=== PATIENT | female | born 1990 | race Two or more races ===

== ENCOUNTER 2019-04-14 19:24 | Emergency (ER) | payer OTHER ==
[~2019-04-14] VITALS: Ht 157.5 cm; Wt 109.0 kg
[2019-04-14 20:41] LABS: BASO # 0.1 x10^3/uL (0.0-0.2); BASO % 1 % (0-3); EOS # 0.1 x10^3/uL (0.0-0.7); EOS % 1 % (0-3); HEMATOCRIT 39.6 % (36.0-47.0); HEMOGLOBIN 13.5 g/dL (12.0-15.5); LYMPH # 2.3 x10^3/uL (1.0-4.8); LYMPH % 24 % (24-48); MEAN CORPUSCULAR HEMOGLOBIN 29 pg (25-35); MEAN CORPUSCULAR HGB CONC 34 g/dL (31-37); MEAN CORPUSCULAR VOLUME 85 fL (79-100); MONO # 0.6 x10^3/uL (0.0-1.1); MONO % 6 % (0-9); NEUT # 6.6 x10^3/uL (1.8-7.7); NEUT % 69 % (31-73); PLATELET COUNT 318 x10^3/uL (140-400); RED BLOOD COUNT 4.66 x10^6/uL (3.50-5.40); RED CELL DISTRIBUTION WIDTH 14.2 % (11.5-14.5); WHITE BLOOD COUNT 9.6 x10^3/uL (4.0-11.0)
[2019-04-14 20:42] LABS: BILIRUBIN,URINE NEGATIVE (NEG); CLARITY,URINE CLEAR; COLOR,URINE YELLOW; NITRITE,URINE NEGATIVE (NEG); PROTEIN,URINE NEGATIVE (NEG-TRACE); UROBILINOGEN,URINE 0.2 mg/dL (0.2 mg/dL)
[2019-04-14 20:46] LABS: SQUAMOUS EPITHELIAL CELL,UR MOD /LPF
[2019-04-14 20:47] LABS: BACTERIA,URINE FEW /HPF (0-FEW)
--- NOTE | 2019-04-14 20:51 | PHYS DOC ---
Adult General Chief Complaint Chief Complaint: ABDOMINAL PAIN HPI HPI 29-year-old female presents to the emergency department with complaints of right upper quadrant pain, epigastric pain over the last 3 months off and on. She states the pain is worse with eating, described as a sharp sensation, states it comes and goes lasting a couple hours at times. She denies any nausea, vomiting, fever, diarrhea at this time. She does state at intervals she does have some nausea associated with the pain. As described. The pain does radiate to the back at times as well. Patient states she's getting a significant amount of weight recently, she is well states her hair has been falling out. She has not seen her primary care physician for her complaints. She denies any headache, chest pain, shortness of breath, visual changes. Review of Systems Review of Systems Constitutional: Denies fever or chills [] Respiratory: Denies cough or shortness of breath [] Cardiovascular: No additional information not addressed in HPI [] GI: + abdominal pain, no nausea, vomiting, bloody stools or diarrhea [] : Denies dysuria or hematuria [] Musculoskeletal: pain radiates to her back Integument: Denies rash or skin lesions [] Neurologic: Denies headache, focal weakness or sensory changes [] All other systems were reviewed and found to be within normal limits, except as documented in this note. Current Medications Current Medications Current Medications Medications (Trade) Dose Ordered Sig/[facility] Start Time Stop Time Status Last Admin Dose Admin Sodium Chloride 1,000 ml @ 1,000 mls/hr Q1H 04/14/19 21:15 04/14/19 22:14 04/14/19 21:15 1,000 MLS/HR Allergies Allergies Allergies Coded Allergies Type Severity Reaction Last Updated Verified No Known Drug Allergies 04/14/19 No Physical Exam Physical Exam Constitutional: Well developed, well nourished, no acute distress, non-toxic appearance. [] HENT: Normocephalic, atraumatic, bilateral external ears normal, oropharynx moist, no oral exudates, nose normal. [] Eyes: PERRLA, EOMI, conjunctiva normal, no discharge. [] Cardiovascular:Heart rate regular rhythm, no murmur [] Lungs & Thorax: Bilateral breath sounds clear to auscultation [] Abdomen: Bowel sounds normal, soft, TTP RUQ - + coleman's sign, no masses, no pulsatile masses. [] Skin: Warm, dry, no erythema, no rash. [] Back: No tenderness, no CVA tenderness. [] Extremities: No tenderness, no edema. [] Neurologic: Alert and oriented X 3, no focal deficits noted. [] Psychologic: Affect normal, judgement normal, mood normal. [] Current Patient Data Vital Signs Vital Signs Date Time Temp Pulse Resp B/P (MAP) Pulse Ox O2 Delivery O2 Flow Rate FiO2 04/14/19 20:25 98.3 100 18 172/71 (104) 100 98.3 Lab Values Laboratory Tests Test 04/14/19 20:34 White Blood Count 9.6 x10^3/uL (4.0-11.0) Red Blood Count 4.66 x10^6/uL (3.50-5.40) Hemoglobin 13.5 g/dL (12.0-15.5) Hematocrit 39.6 % (36.0-47.0) Mean Corpuscular Volume 85 fL (79-100) Mean Corpuscular Hemoglobin 29 pg (25-35) Mean Corpuscular Hemoglobin Concent 34 g/dL (31-37) Red Cell Distribution Width 14.2 % (11.5-14.5) Platelet Count 318 x10^3/uL (140-400) Neutrophils (%) (Auto) 69 % (31-73) Lymphocytes (%) (Auto) 24 % (24-48) Monocytes (%) (Auto) 6 % (0-9) Eosinophils (%) (Auto) 1 % (0-3) Basophils (%) (Auto) 1 % (0-3) Neutrophils # (Auto) 6.6 x10^3/uL (1.8-7.7) Lymphocytes # (Auto) 2.3 x10^3/uL (1.0-4.8) Monocytes # (Auto) 0.6 x10^3/uL (0.0-1.1) Eosinophils # (Auto) 0.1 x10^3/uL (0.0-0.7) Basophils # (Auto) 0.1 x10^3/uL (0.0-0.2) Urine Collection Type Unknown Urine Color Yellow Urine Clarity Clear Urine pH 6.0 Urine Specific Taylor 1.010 Urine Protein Negative mg/dL (NEG-TRACE) Urine Glucose (UA) Negative mg/dL (NEG) Urine Ketones (Stick) Negative mg/dL (NEG) Urine Blood Moderate (NEG) Urine Nitrite Negative (NEG) Urine Bilirubin Negative (NEG) Urine Urobilinogen Dipstick 0.2 mg/dL (0.2 mg/dL) Urine Leukocyte Esterase Trace (NEG) Urine RBC 6-10 /HPF (0-2) Urine WBC 5-10 /HPF (0-4) Urine Squamous Epithelial Cells Mod /LPF Urine Bacteria Few /HPF (0-FEW) Sodium Level 138 mmol/L (136-145) Potassium Level 3.4 mmol/L (3.5-5.1) L Chloride Level 103 mmol/L (98-107) Carbon Dioxide Level 25 mmol/L (21-32) Anion Gap 10 (6-14) Blood Urea Nitrogen 8 mg/dL (7-20) Creatinine 0.5 mg/dL (0.6-1.0) L Estimated GFR (Cockcroft-Gault) 146.9 BUN/Creatinine Ratio 16 (6-20) Glucose Level 95 mg/dL (70-99) Calcium Level 9.3 mg/dL (8.5-10.1) Total Bilirubin 0.3 mg/dL (0.2-1.0) Aspartate Amino Transferase (AST) 19 U/L (15-37) Alanine Aminotransferase (ALT) 37 U/L (14-59) Alkaline Phosphatase 81 U/L (46-116) Total Protein 8.6 g/dL (6.4-8.2) H Albumin 3.7 g/dL (3.4-5.0) Albumin/Globulin Ratio 0.8 (1.0-1.7) L Lipase 75 U/L (73-393) Laboratory Tests 04/14/19 20:34 Laboratory Tests 04/14/19 20:34 EKG EKG [] Radiology/Procedures Radiology/Procedures [facility] [address] [place] [address] IMAGING REPORT Signed PATIENT: ARYA SAMAYOA LACCOUNT: [id number] : 1990 LOCATION: ER AGE: 29 SEX: F EXAM STATUS: REG ER ORD. PHYSICIAN: PEDRITO KOEHLER MD REASON: Right upper quadrant pain, + coleman's sign PROCEDURE: ABDOMEN LTD ABDOMEN LTD INDICATION: Abdominal pain COMPARISON: None. TECHNIQUE: Limited transverse and longitudinal grayscale images of the right upper quadrant with color and pulsed doppler utilized as appropriate. FINDINGS: The liver demonstrates normal echogenicity without focal lesions. The liver measures 15.9 cm. The portal vein is patent with normal antegrade flow. The gallbladder is normal in appearance without stones. No wall thickening or pericholecystic fluid. Negative sonographic Coleman's sign. No intrahepatic or extrahepatic biliary dilatation. The common bile duct measures 0.3 cm. Pancreas is not well visualized. The right kidney has normal echogenicity and measures 11.7 cm. No hydronephrosis, shadowing stones or suspicious masses seen. No ascites or fluid collections. The aorta and IVC are poorly visualized. IMPRESSION: Normal gallbladder. No evidence of acute cholecystitis. Electronically signed by: Itzel Edmonds MD (04/14/2019 9:44 PM) [id number] DICTATED and SIGNED BY: ITZEL EDMONDS MD DATE: 04/14/192143 [] Course & Med Decision Making Course & Med Decision Making Pertinent Labs and Imaging studies reviewed. (See chart for details) []29-year-old female presents to the emergency department with complaints of right upper quadrant pain, epigastric pain over the last 3 months off and on. She states the pain is worse with eating, described as a sharp sensation, states it comes and goes lasting a couple hours at times. She denies any nausea, vomiting, fever, diarrhea at this time. She does state at intervals she does have some nausea associated with the pain. As described. The pain does radiate to the back at times as well. Patient states she's getting a significant amount of weight recently, she is well states her hair has been falling out. She has not seen her primary care physician for her complaints. She denies any headache, chest pain, shortness of breath, visual changes. Labs reviewed US negative Patient presents with biliary colic type pain Recommend follow up as outaptient with surgery referral - she likely needs PIPIDA scan to follow the function of the gall bladder Capulin and zofran provided upon discharge Pain controlled at this time Discussed return precautions Jerry Disclaimer Dragon Disclaimer This electronic medical record was generated, in whole or in part, using a voice recognition dictation system. Departure Departure Impression: Primary Impression: Biliary colic Referrals: NO PCP (PCP) Patient Instructions: Biliary Colic Additional Instructions: Recommend follow up with PCP/Referral for surgical eval Likely will need PIPIDA as outpatient to follow the function of the gallbladder Pain medication/Nausea medication provided upon discharge Return to ER with fever, returned pain, nausea/vomiting intractable Scripts Hydrocodone/Apap 5-325 (NORCO 5-325 TABLET) 1 Each Tablet 1 TAB PO PRN Q6HRS PRN for PAIN, #10 TAB 0 Refills Prov: PEDRITO KOEHLER MD 04/14/19 Ondansetron Hcl (ZOFRAN) 4 Mg Tablet 1 TAB PO PRN Q6-8HRS for nausea, #12 TAB Prov: PEDRITO KOEHLER MD 04/14/19 PEDRITO KOEHLER MD Apr 14, 2019 20:51
[2019-04-14 20:53] LABS: CALCIUM 9.3 mg/dL (8.5-10.1); CREATININE 0.5 mg/dL (0.6-1.0); GFR 146.9; POTASSIUM 3.4 mmol/L (3.5-5.1)
[2019-04-14 20:57] LABS: ALBUMIN 3.7 g/dL (3.4-5.0); ALBUMIN/GLOBULIN RATIO 0.8 (1.0-1.7); TOTAL BILIRUBIN 0.3 mg/dL (0.2-1.0); TOTAL PROTEIN 8.6 g/dL (6.4-8.2)
[2019-04-14] MEDS ORDERED: IV NORMAL SALINE 1000ML BAG 1,000 ML IV SCH (21:15)
--- NOTE | 2019-04-14 21:47 | RAD ---
ABDOMEN LTD INDICATION: Abdominal pain COMPARISON: None. TECHNIQUE: Limited transverse and longitudinal grayscale images of the right upper quadrant with color and pulsed doppler utilized as appropriate. FINDINGS: The liver demonstrates normal echogenicity without focal lesions. The liver measures 15.9 cm. The portal vein is patent with normal antegrade flow. The gallbladder is normal in appearance without stones. No wall thickening or pericholecystic fluid. Negative sonographic Coleman's sign. No intrahepatic or extrahepatic biliary dilatation. The common bile duct measures 0.3 cm. Pancreas is not well visualized. The right kidney has normal echogenicity and measures 11.7 cm. No hydronephrosis, shadowing stones or suspicious masses seen. No ascites or fluid collections. The aorta and IVC are poorly visualized. IMPRESSION: Normal gallbladder. No evidence of acute cholecystitis. Electronically signed by: William Edmonds MD (04/14/2019 9:44 PM) [id number]
[2019-04-14 21:55] VITALS: BP 143/86
[2019-04-14] MEDS ORDERED: ONDA4TAB7 PO (22:18)
[2019-04-14] MEDS ORDERED: HYDR-3164 PO (22:18)
== END 2019-04-14 22:25 | disposition home or self-care (01) ==
LOC: ER 19:24
DX: K52.9 Noninfective gastroenteritis and colitis, unspecified (principal); R10.11 Right upper quadrant pain; R11.0 Nausea
CPT/HCPCS: 36415; 76705; 80053; 81001; 83690; 85025; 87086; 99285; J7030; 99284